=== PATIENT | female | born 1990 | race Caucasian/White ===

== ENCOUNTER 2017-04-05 15:43 | Emergency (ER) | payer OTHER ==
[2017-04-05 16:04] VITALS: BP 124/78
--- NOTE | 2017-04-05 16:16 | ED ---
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,, - History of Current Complaint Chief Complaint: EDExtremityUpper Stated Complaint: RT ARM PAIN/SWELLING Time Seen by Provider: 04/05/17 16:07 Hx Obtained From: Patient Hx Last Menstrual Period: June 2016 (Nexplanon) Onset/Duration: Atraumatic Timing: Constant Severity Initially: Moderate Severity Currently: Moderate Pain Location: Wrist - right Character: Aching Aggravating Factor(s): Movement Alleviating Factor(s): Nothing Associated Signs & Symptoms: Positive: Negative Related History: Dominant Hand Right - Allergies/Home Medications Allergies/Adverse Reactions: Allergies Allergy/AdvReac Type Severity Reaction Status Date / Time No Known Allergies Allergy Verified 03/17/15 13:45 PMH/Surg Hx/FS Hx/Imm Hx Previously Healthy: Yes Psychiatric History: Reports: Hx Anxiety, Hx Depression Infectious Disease History: No Infectious Disease History: Denies: Traveled Outside the [place] in Last 30 Days - Family History Known Family History: Positive: None - Social History Occupation: Employed Full-time Lives: With Family Alcohol Use: None Substance Use Type: Reports: Heroin Substance Use Comment - Amount & Last Used: 1.5 yrs ago last use Hx Tobacco Use: Yes Smoking Status (MU): Current Every Day Smoker Type: Cigarettes Amount Used/How Often: 1ppd Have You Smoked in the Last Year: Yes Cessation Counseling: Counseled 3+Min - 10 Min Review of Systems Constitutional: Negative Eyes: Negative ENT: Negative Cardiovascular: Negative Respiratory: Negative Gastrointestinal: Negative Genitourinary: Negative Positive: Arthralgia - right wrist Skin: Negative Neurological: Negative Psychological: Normal All Other Systems Reviewed And Are Negative: Yes Physical Exam Triage Information Reviewed: Yes Vital Signs On Initial Exam: Initial Vitals Temp Pulse Resp BP Pulse Ox 97.5 F 73 16 124/78 99 04/05/17 16:00 04/05/17 16:00 04/05/17 16:00 04/05/17 16:00 04/05/17 16:00 Vital Signs Reviewed: Yes Appearance: Positive: Well-Appearing, No Pain Distress, Well-Nourished Skin: Positive: Warm, Skin Color Reflects Adequate Perfusion Head/Face: Positive: Normal Head/Face Inspection Eyes: Positive: Normal, Conjunctiva Clear ENT: Positive: Normal ENT inspection, Hearing grossly normal. Negative: Nasal congestion, Nasal drainage, Trismus, Muffled/hoarse voice Neck: Positive: Supple, Nontender Respiratory/Lung Sounds: Positive: Breath Sounds Present Cardiovascular: Positive: Normal, RRR, Pulses are Symmetrical in both Upper and Lower Extremities Musculoskeletal: Positive: Strength/ROM Intact - right wrist, Pain @ - right wrist Neurological: Positive: Normal, Sensory/Motor Intact, Alert, Oriented to Person Place, Time Psychiatric: Positive: Normal AVPU Assessment: Alert - [place] Coma Scale Best Eye Response: 4 - Spontaneous Best Motor Response: 6 - Obeys Commands Best Verbal Response: 5 - Oriented Diagnostics - Vital Signs Vital Signs Temp Pulse Resp BP Pulse Ox 04/05/17 16:00 97.5 F 73 16 124/78 99 - Laboratory Lab Statement: Any lab studies that have been ordered have been reviewed, and results considered in the medical decision making process. - Radiology No standard instances Xray Interpretation: No Acute Changes Radiology Interpretation Completed By: ED Physician Course/Dx - Course Assessment/Plan: lonnie, cockup splint, ibuprofen rice, follow with ortho prn - Diagnoses Provider Diagnoses: Nicotine dependence, Repetitive motion injury Discharge - Discharge Plan Condition: Stable Disposition: HOME Patient Education Materials: RICE Therapy (ED), Ibuprofen (By mouth), Wrist Injury (ED) Forms: *Work Release Referrals: Lana Godinez MD [Primary Care Provider] - If Needed
--- NOTE | 2017-04-05 17:00 | RAD ---
INDICATION: RIGHT wrist pain with proximal radiation; over use injury. COMPARISON: None. TECHNIQUE: AP, lateral, and oblique views RIGHT wrist. REPORT: Normal articular alignment and preserved joint spaces. Negative for fracture or focal osseous lesion. Unremarkable soft tissue contours. IMPRESSION: Negative exam.
== END 2017-04-05 17:10 | disposition home or self-care (01) ==
LOC: ED 15:43
DX: S69.91XA Unspecified injury of right wrist, hand and finger(s), initial encounter (principal); X50.3XXA Overexertion from repetitive movements, initial encounter; Y93.E9 Activity, other interior property and clothing maintenance; Y92.59 Other trade areas as the place of occurrence of the external cause; Y99.0 Civilian activity done for income or pay; F41.9 Anxiety disorder, unspecified; F32.9 Major depressive disorder, single episode, unspecified; Z71.6 Tobacco abuse counseling; F17.210 Nicotine dependence, cigarettes, uncomplicated
CPT/HCPCS: 99282

== ENCOUNTER 2017-07-30 15:42 | Emergency (ER) | payer OTHER ==
--- OUTSIDE RECORDS SUMMARY | 2017-07-30 15:50 | XMS REPORT ---
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 Marleny Mo PayID: [id number] [address] [place] [address] Commercial Expires: 2017 Policy Number: [id number] [facility] Marleny Mo PayID: [id number] [address] [address] [place] [address] Medigap Part B Policy Number: [id number] Medicaid [place] Marleny Mo PayID: [id number] [address] [place] [address] Problems Date Description Provider Status Onset: 05/12/2016 Tobacco user Lupe Wilson CNM Active Onset: 05/12/2016 Primigravida Lupe Wilson CNM Resolved Resolved: 07/18/2016 Family History Date Family Member(s) Problem(s) Comments Father A&W Mother due to Accident () Children 1 First Son A&W Siblings 5 First Brother Depression Second Brother A&W First Sister Mental Retardation Second Sister A&W Third Sister A&W Paternal Grandfather due to Old Age () Paternal Grandmother A&W Maternal Grandfather Unknown Maternal Grandmother Diabetes Paternal Aunts Diabetes Social History Type Date Description Comments Education Highest level completed, 12th grade Marital Status Engaged Lives With Fiance Lives With fiance's uncle Lives With Son Pets 1 dog Occupation Unemployed Cigarette Use Current Cigarette Smoker 5-10 Cigarettes Daily ETOH Use Denies alcohol use Recreational Drug Use Denies Drug Use Smoking Patient is a current smoker, smokes every day Daily Caffeine Consumes on average 1 soda per day Exercise Type/Frequency Does not exercise Seat Belt/Car Seat Always uses seat belt Currently Active Patient is currently sexually active Contraceptive Methods Nexplanon STD's HPV, High Risk Allergies, Adverse Reactions, Alerts Date Description Reaction Status Severity Comments 04/18/2016 NKDA active Medications Medication Date Status Form Strength Qnty SIG Indications Ordering Provider No Active 05/23/ Active Unknown Medications 2016 Premarin 11/01/ Hx Cream 0.625mg/GM 12gm insert 0.5 Dev Jones 2017 - gram Pop, 04/25/ vaginally Rudy 2017 two nights per week Nexplanon 07/18/ Hx Implant 68mg Stephanie 2017 - Thang, 05/23/ 2017 No Active 06/30/ Hx Unknown Medications 2017 - 2016 Flagyl 04/19/ Hx Tablets 500mg 14tabs 1 by mouth Janette 2016 - twice a day Jump, 04/26/ x7 ANP-C 2016 / Hx Tablets 28-0.8mg 1 by mouth Unknown Vitamins 0000 - every day. 06/30/ please 2017 substitute any vitamin with 100-300 mcg dha covered by insurance Medications Administered in Office Medication Date Status Form Strength Qnty SIG Indications Ordering Provider PT SCRN Tbco Administered Injection Dev Jones Id as Non User 018 Rudy Lord Immunizations CPT Code Status Date Vaccine Lot # [id number] Given 04/19/2016 Tetnus, Diptheria Toxoids And Acellular Pertussis, [id number] PT > 7Yrs Old Vital Signs Date Vital Result Comment 07/23/2017 BP Systolic 132 mmHg BP Diastolic 80 mmHg Height 65.5 inches 5'5.50" Weight 189.00 lb BMI (Body Mass Index) 31.0 kg/m2 Last Menstrual Period [id number] 1 Parity 1 05/23/2017 BP Systolic 128 mmHg BP Diastolic 84 mmHg Height 65.5 inches 5'5.50" Weight 192.00 lb BMI (Body Mass Index) 31.5 kg/m2 1 Parity 1 11/01/2016 BP Systolic 122 mmHg BP Diastolic 70 mmHg Height 65.5 inches 5'5.50" Weight 180.00 lb BMI (Body Mass Index) 29.5 kg/m2 Last Menstrual Period [id number] 1 Parity 1 08/15/2016 BP Systolic 116 mmHg BP Diastolic 72 mmHg Height 65.5 inches 5'5.50" Weight 174.00 lb BMI (Body Mass Index) 28.5 kg/m2 Last Menstrual Period [id number] 1 Parity 1 07/18/2016 BP Systolic 122 mmHg BP Diastolic 80 mmHg Height 65.5 inches 5'5.50" Weight 174.00 lb BMI (Body Mass Index) 28.5 kg/m2 Last Menstrual Period [id number] 1 Parity 1 06/30/2016 BP Systolic 120 mmHg BP Diastolic 80 mmHg Height 65.5 inches 5'5.50" Weight 177.00 lb BMI (Body Mass Index) 29.0 kg/m2 Last Menstrual Period [id number] 1 Parity 1 04/19/2016 BP Systolic 122 mmHg BP Diastolic 70 mmHg Height 65.5 inches 5'5.50" Weight 186.00 lb BMI (Body Mass Index) 30.5 kg/m2 Last Menstrual Period [id number] 1 Parity 0 Results Test Date Test Result H/L Range Note Laboratory test 07/27/2017 HCG <pending> finding Laboratory test 07/23/2017 HCG 263.57 mIU/mL 1 finding CBC Auto Diff 07/23/2017 White Blood Count 10.5 10^3/uL 3.5-10.8 Red Blood Count 5.37 10^6/uL 4.0-5.4 Hemoglobin 14.9 g/dL 12.0-16.0 Hematocrit 44 % 35-47 Mean Corpuscular Volume 83 fL 80-97 Mean Corpuscular Hemoglobin 28 pg 27-31 Mean Corpuscular HGB Conc 34 g/dL 31-36 Red Cell Distribution Width 15 % 10.5-15 Platelet Count 254 10^3/uL 150-450 Mean Platelet Volume 10 um3 7.4-10.4 Abs Neutrophils 8.4 10^3/uL High 1.5-7.7 Abs Lymphocytes 1.3 10^3/uL 1.0-4.8 Abs Monocytes 0.6 10^3/uL 0-0.8 Abs Eosinophils 0.1 10^3/uL 0-0.6 Abs Basophils 0.1 10^3/uL 0-0.2 Abs Nucleated RBC 0 10^3/uL Granulocyte % 79.9 % 38-83 Lymphocyte % 12.7 % Low 25-47 Monocyte % 6.2 % 1-9 Eosinophil % 0.5 % 0-6 Basophil % 0.7 % 0-2 Nucleated Red Blood Cells % 0 Comp Metabolic Panel 07/23/2017 Sodium 139 mmol/L 133-145 Potassium 4.0 mmol/L 3.5-5.0 Chloride 107 mmol/L 101-111 Co2 Carbon Dioxide 25 mmol/L 22-32 Anion Gap 7 mmol/L 2-11 Glucose 74 mg/dL 70-100 Blood Urea Nitrogen 5 mg/dL Low 6-24 Creatinine 0.81 mg/dL 0.51-0.95 BUN/Creatinine Ratio 6.2 Low 8-20 Calcium 9.6 mg/dL 8.6-10.3 Total Protein 6.8 g/dL 6.4-8.9 Albumin 4.3 g/dL 3.2-5.2 Globulin 2.5 g/dL 2-4 Albumin/Globulin Ratio 1.7 1-3 Total Bilirubin 0.30 mg/dL 0.2-1.0 Alkaline Phosphatase 63 U/L 34-104 Alt 32 U/L 7-52 Ast 22 U/L 13-39 Egfr Non- 84.8 >60 Egfr 109.1 >60 2 Laboratory test 11/01/2016 Surgical Pathology SEE RESULT BELOW 3 finding Laboratory test 08/15/2016 Surgical Pathology SEE RESULT BELOW 4 finding GC/Chlamydia Dna 04/26/2016 Chlamydia trachomatis Negative Negative Probe Rna Neisseria gonorrhoeae (GC) Rna Negative Negative Urine Drug Comp 20 Test 04/26/2016 Urine Amphetamine Negative ng/mL 5 Urine Barbiturates Negative ng/mL 6 Urine Benzodiazepines Negative ng/mL 7 Urine Cocaine Negative ng/mL 8 Urine Phencyclidine Negative ng/mL Cutoff: 25 Urine Tetrahydrocannabinol Negative ng/mL Cutoff: 50 9 Creatinine 270.7 mg/dL Specific [place] 1.015 pH 7.0 Oxidants Negative 10 Adulterants Comment Normal Codeine, Ur Not Detected ng/mL Cutoff: 25 11 Jozzkoc-8-xwib-glucuronide, Ur Not Detected ng/mL 12 Morphine, Ur Not Detected ng/mL Cutoff: 25 13 Mqfzjzbr-7-fgui-glucuronide, U Not Detected ng/mL 14 6-monoacetylmorphine, Ur Not Detected ng/mL Cutoff: 25 15 Hydrocodone, Ur Not Detected ng/mL Cutoff: 25 16 Norhydrocodone, Ur Not Detected ng/mL Cutoff: 25 17 Dihydrocodeine, Ur Not Detected ng/mL Cutoff: 25 18 Hydromorphone, Ur Not Detected ng/mL Cutoff: 25 19 Xzqgpkcppocrm4othklpyqkmeexnu Not Detected ng/mL 20 Oxycodone, Ur Not Detected ng/mL Cutoff: 25 21 Noroxycodone, Ur Not Detected ng/mL Cutoff: 25 22 Oxymorphone, Ur Not Detected ng/mL Cutoff: 25 23 Eskpczthzlw-4-qxjw-glucuronide Not Detected ng/mL 24 Noroxymorphone, Ur Not Detected ng/mL Cutoff: 25 25 Fentanyl, Ur Not Detected ng/mL Cutoff: 2 26 Norfentanyl, Ur Not Detected ng/mL Cutoff: 2 27 Meperidine, Ur Not Detected ng/mL Cutoff: 25 28 Normeperidine, Ur Not Detected ng/mL Cutoff: 25 29 Naloxone, Ur Not Detected ng/mL Cutoff: 25 30 Jtmpglrh-1-fzzq-glucuronide, U Not Detected ng/mL 31 Methadone, Ur Not Detected ng/mL Cutoff: 25 32 Eddp, Ur Not Detected ng/mL Cutoff: 25 33 Propoxyphene, Ur Not Detected ng/mL Cutoff: 25 34 Norpropoxyphene, Ur Not Detected ng/mL Cutoff: 25 35 Tramadol, Ur Not Detected ng/mL Cutoff: 25 36 O-desmethyltramadol, Ur Not Detected ng/mL Cutoff: 25 37 Tapentadol, Ur Not Detected ng/mL Cutoff: 25 38 N-desmethyltapentadol, Ur Not Detected ng/mL Cutoff: 50 39 Lxokekxkqm-zavr-yorfbanbenh, U Not Detected ng/mL 40 Buprenorphine, Ur Not Detected ng/mL Cutoff: 5 41 Norbuprenorphine, Ur Not Detected ng/mL Cutoff: 5 42 Norbuprenorphine glucuronide Not Detected ng/mL Cutoff: 20 43 Opioid Interpretation See Comment 44 Laboratory test 04/19/2016 Rubella Screen Nonimmune IU/mL Immune 45 finding Laboratory test 04/19/2016 Group B Strep SEE RESULT BELOW 46, 47 finding Culture Screen Laboratory test 04/19/2016 Cytology SEE RESULT BELOW ASCUS 48 finding GC/Chlamydia Dna 04/19/2016 Chlamydia Negative Negative Probe trachomatis Rna Neisseria gonorrhoeae (GC) Rna Negative Negative Laboratory test finding 04/19/2016 HPV Rna Ww/Reflex Genotype POSITIVE Negative 49 HPV 16, 18/45 Genotype 04/19/2016 HPV 16 Genotype Negative Negative HPV 18/45 Genotype Negative Negative Urine Culture And Sensitivities 04/19/2016 Urine Culture SEE RESULT BELOW 50 1 <5.0 Negative 5.0 - 25.0 Indeterminate (Repeat testing recommended after 72 hours) >25.0 Positive Perimenopausal women can display HCG levels of up to 20 mIU/mL 2 Because ethnic data is not always readily available, this report includes an eGFR for both -Americans and non- Americans. The National Kidney Disease Education Program (NKDEP) does not endorse the use of the MDRD equation for patients that are not between the ages of 18 and 70, are , have extremes of body size, muscle mass, or nutritional status, or are non- or non-. According to the National Kidney Foundation, irrespective of diagnosis, the stage of the disease is based on the level of kidney function: Stage Description GFR(mL/min/1.73 m(2)) 1 Kidney damage with normal or decreased GFR 90 2 Kidney damage with mild decrease in GFR 60-89 3 Moderate decrease in GFR 30-59 4 Severe decrease in GFR 15-29 5 Kidney failure <15 (or dialysis) 3 SEE RESULT BELOW Name: MARLENY MO : [address]: Dev Lord MD Acct: [id number] Unit: [id number] AGE: 26 Location: [facility] Re11/01/16 SEX: F Status: REG REF SPEC: [id number] DANIELLE: 11/01/16-1516 [facility] [address]: Dev Lord MD REQ: [id number] RECD: 11/02/16 STATUS: SOUT _ ORDERED: LEVEL 4, LEVEL 5 COMMENTS: [id number] FINAL DIAGNOSIS 1. Uterus, cervix, loop electrocautery excision procedure: -- Cervical tissue with HPV-related viral cytopathic effect and moderate squamous dysplasia (PELON 2/HSIL). -- All margins are clear for significant dysplasia. 2. Uterus, endocervix, curettage: -- Benign endocervical mucosa with no significant pathologic abnormalities. PRE-OPERATIVE DIAGNOSIS High grade squamous intraepithelial lesion, positive human papilloma virus GROSS DESCRIPTION 1. The specimen is received in formalin labeled, Cervical Biopsy LEEP, and consists of three cortes-pink irregular focally cauterized soft tissue fragments ranging from 0.7 x 0.5 x 0.2 cm to 2.0 x 1.1 x 0.4 cm. The specimen is consistent with a previously disrupted cervical LEEP biopsy. The ectocervix is smooth to wrinkled cortes-pink. The endocervix cannot be appreciated. The specimen is inked, sectioned and entirely submitted in cassettes A through D to include largest fragment in cassettes A and B. 2. The specimen is received in formalin labeled, ECC, and consists of a 1.1 x 0.9 x 0.5 cm aggregate of blood-tinged mucus which is submitted entirely in one cassette. Signed (signature on file) Nohemy Crowell MD 06/10 1604 END OF REPORT * ML=Testing performed at Main Lab DEPARTMENT OF PATHOLOGY, [address] [place] [address] Moises Salazar M.D. Director [facility] # [id number] 4 SEE RESULT BELOW Name: MARLENY MO : [address]: Dev Lord MD Acct: [id number] Unit: [id number] AGE: 26 Location: [facility] Re08/15/16 SEX: F Status: REG REF SPEC: [id number] DANIELLE: 08/15/16-9[address] [facility] DR: Dev Lord MD REQ: [id number] RECD: 08/16/16-1145 STATUS: SOUT _ ORDERED: P16 STAIN, LEVEL IV COMMENTS: [id number] FINAL DIAGNOSIS Uterus, cervix, biopsy: -- Detached fragments of cervical mucosa with HPV-related viral cytopathic effect and moderate squamous dysplasia (PELON 2/HSIL); see comment. COMMENT: A p16 immunostain, with appropriately reacting controls, is strongly and diffusely positive in fragmented dysplastic squamous epithelium, supporting the diagnosis. Dr. Salazar reviewed this case in intradepartmental consultation and agrees with the diagnosis. PRE-OPERATIVE DIAGNOSIS Atypical squamous cells of undetermined significance, positive human papilloma virus GROSS DESCRIPTION The specimen is received in formalin labeled, Cervical Biopsy, and consists of a brush-like device with an adherent 0.3 x 0.2 x 0.1 cm aggregate of cortes-pink mucus and scant possible soft tissue fragments. The specimen is filtered and submitted entirely in one cassette. Signed (signature on file) Nohemy Crowell MD 0950 END OF REPORT * ML=Testing performed at Main Lab DEPARTMENT OF PATHOLOGY, [address] [place] [address] Moises Salazar M.D. Director [facility] # [id number] 5 REFERENCE VALUE Cutoff: 500 6 REFERENCE VALUE Cutoff: 200 7 REFERENCE VALUE Cutoff: 100 8 REFERENCE VALUE Cutoff: 150 9 ADDITIONAL INFORMATION This report is intended for use in clinical monitoring or management of patients. It is not intended for use in employment-related testing. 10 REFERENCE VALUE Cutoff: 200 mg/L 11 Tylenol 3 12 Metabolite of codeine REFERENCE VALUE Cutoff: 100 13 Glenis Porras, Contin; Also a minor metabolite (10%) of codeine and can be seen in low concentrations (<2,000 ng/mL) with poppy seed ingestion. 14 Metabolite of morphine REFERENCE VALUE Cutoff: 100 15 Metabolite of heroin 16 Lortab, Brohman, Vicodin; Also a very minor metabolite of codeine and impurity (<1%) of oxycodone. 17 Metabolite of hydrocodone 18 Metabolite of hydrocodone 19 Dilaudid, Exalgo; Also a metabolite of hydrocodone and a minor (<5%) metabolite of morphine. 20 Metabolite of hydromorphone REFERENCE VALUE Cutoff: 100 21 Endocet, Percocet, Oxycontin 22 Metabolite of oxycodone 23 Numorphan, Opana; Also a metabolite of oxycodone. 24 Metabolite of oxymorphone REFERENCE VALUE Cutoff: 100 25 Metabolite of oxymorphone 26 Actiq, Duragesic, Fentora 27 Metabolite of fentanyl 28 Demerol 29 Metabolite of meperidine 30 Narcan 31 Metabolite of naloxone REFERENCE VALUE Cutoff: 100 32 Dolophine 33 Metabolite of methadone 34 Darvon, Darvocet 35 Metabolite of propoxyphene 36 Tradol, Ultram, Ultracet 37 Metabolite of tramadol 38 Nucynta 39 Metabolite of tapentadol 40 Metabolite of tapentadol REFERENCE VALUE Cutoff: 100 41 Buprenex, Suboxone 42 Metabolite of buprenorphine 43 Metabolite of buprenorphine 44 No opioids were detected. The absence of expected drug(s) and/or drug metabolite(s) may indicate non-compliance, altered pharmacokinetics, inappropriate timing of specimen collection relative to drug administration, diluted/adulterated urine, or limitations of testing. ADDITIONAL INFORMATION This test was developed and its performance characteristics determined by [facility] in a manner consistent with CLIA requirements. This test has not been cleared or approved by the U.S. Food and Drug Administration. PDF Report available at: [email or web address] Test Performed by: [place] [address] Claim Rep: Dwayne Hughes II, M.D., Ph.D. 45 [id number] 46 [id number] 47 SEE RESULT BELOW Name: MARLENY MO : [address]: Janette Rosales Acct: [id number] Unit: [id number] AGE: 25 Location: [facility] Re04/19/16 SEX: F Status: REG REF SPEC: [id number] DANIELLE: 04/19/[address]: Janette Rosales REQ: [id number] RECD: 04/19/16 STATUS: COMP _ SOURCE: CER/VAG/RE SPDESC: ORDERED: Grp B Strp Scrn COMMENTS: [id number] QUERIES: Is Patient Penicillin Allergic? N Is patient penicillin allergic and/or sensitivities needed? N Provider Requisition # C77#[id number] Procedure Result Reported Site Group B Strep Culture Screen Final 04/21/16- 1054 ML Group B Strep Screen Negative * ML - MAIN LAB ([facility]) . END OF REPORT * ML=Testing performed at Main Lab DEPARTMENT OF PATHOLOGY, [address] [place] [address] Moises Salazar M.D. Director [facility] # [id number] 48 SEE RESULT BELOW Name: MARLENY MO : [address]: Janette Rosales Acct: [id number] Unit: [id number] AGE: 25 Location: [facility] Re04/19/16 SEX: F Status: REG REF SPEC: [id number] DANIELLE: 04/19/[address] [facility] [address]: Janette Rosales REQ: [id number] RECD: 04/19/16 STATUS: SOUT _ ORDERED: IMAGE ANALYSIS, HPV/Thin Prep, HPV 16/18 GENE COMMENTS: [id number] FINAL DIAGNOSIS EPITHELIAL CELL ABNORMALITIES Atypical squamous cells of undetermined significance A. Ectocervical/Endocervical Specimen Adequacy: Satisfactory of evaluation Transformation zone component identified Patient Information: HPV: High risk HPV RNA testing regardless of pap results. HPV 16/18 Genotype Reflex Actual Specimen Date: 04/19/16 Last Menstrual Date: 07/28/15 ?: Y Date Time Test Result Flag (u) Normal Range 04/19/16 1352 HPV RNA RFLX GE POSITIVE H Negative The high-risk HPV types detected by the assay include: 16, 18, 31, 33, 35, 39, 45, 51, 52, 56, 58, 59, 66, and 68. Signed (signature on file) Moises Salazar MD 1615 This Pap test was evaluated with the assistance of the [employer] Test Imaging System. Due to cytologic findings at the steel buffer microscope, comprehensive manual rescreening by a Water Filter Cleaner may be required. The Pap Smear is a screening test designed to aid in the detection of premalignant and malignant conditions of the uterine cervix. It is not a diagnostic procedure and should not be used as the sole means of detecting cervical cancer. Both false- positive and false- negative reports do occur. Depending on your risk status, a Pap smear should be obtained and evaluated every 1-3 years. END OF REPORT * ML=Testing performed at Main Lab DEPARTMENT OF PATHOLOGY, [address] [place] [address] Moises Salazar M.D. Director [facility] # [id number] 49 The high-risk HPV types detected by the assay include: 16, 18, 31, 33, 35, 39, 45, 51, 52, 56, 58, 59, 66, and 68. 50 SEE RESULT BELOW Name: MARLENY MO : [address]: Janette Rosales Acct: [id number] Unit: [id number] AGE: 25 Location: [facility] Re04/19/16 SEX: F Status: REG REF SPEC: [id number] DANIELLE: 04/19/16-[address]: Janette Rosales REQ: [id number] RECD: 04/19/169314 STATUS: COMP _ SOURCE: URINE SPDESC: ORDERED: Urine Culture COMMENTS: [id number] Procedure Result Reported Site Urine Culture Final 04/20/16- 1557 ML No growth of clinically significant organisms * ML - MAIN LAB ([facility]) . END OF REPORT * ML=Testing performed at Main Lab DEPARTMENT OF PATHOLOGY, [address] [place] [address] Moises Salazar M.D. Director [facility] # [id number] Procedures Date CPT Code Description Status 05/23/2017 18322 Remove Contraceptive Capsule Completed 11/01/2016 75873 Colposcopy W/Loop Electrode Biopsy Of The Cervix Completed 08/15/2016 19346 Colposcopy W/Biopsy Cervix/Endocervical Curettage Completed 07/18/2016 81803 Insertion, Non-Biodegradable Drug Delivery Implant Completed 05/17/2016 90553 Vaginal Delivery Only Completed 05/12/2016 15020 Antepartum Care 4-6 Visits Completed Encounters Type Date Location Provider CPT E/M Dx Office Visit 07/23/2017 2:00p [facility] Dev Lord M.D. 51573 O36.80x0 Plan of Care Future Appointment(s):07/30/2017 2:30 pm - Ultrasounds at [facility]2017 11:00 am - Sandee Zavala CNM at [facility]
--- OUTSIDE RECORDS SUMMARY | 2017-07-30 15:51 | XMS REPORT ---
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 Payers Type Date Identification Numbers Payment Provider Subscriber Commercial Policy Number: [id number] [facility] Marleny Mo PayID: [id number] [address] [place] [address] Commercial Expires: 2017 Policy Number: [id number] [facility] Marleny Mo PayID: [id number] [address] [address] [place] [address] Medigap Part B Policy Number: [id number] Medicaid [place] Marleny Mo PayID: [id number] [address] [place] [address] Problems Date Description Provider Status Onset: 05/12/2016 [...] insert 0.5 Dev Jones 2017 - gram Gelber, 04/25/ vaginally M.DLexi 2017 two nights per week Nexplanon 07/18/ Hx Implant 68mg Stephanie 2017 - Thang, 2016 No Active 06/30/ Hx Unknown Medications 2017 - 2016 Flagyl 04/19/ Hx Tablets 500mg 14tabs 1 by mouth Janette 2016 - twice a day Jump, 04/26/ x7 ANP-C 2016 / Hx Tablets 28-0.8mg 1 by mouth Unknown Vitamins 0000 - every day. 06/30/ please 2017 substitute any vitamin with 100-300 mcg dha covered by insurance Immunizations CPT Code Status Date Vaccine Lot # [id number] Given 04/19/2016 Tetnus, Diptheria Toxoids And Acellular Pertussis, [id number] PT > 7Yrs Old Vital Signs Date Vital Result Comment 07/23/2017 BP Systolic 132 mmHg BP Diastolic 80 mmHg Height 65.5 inches 5'5.50" Weight 189.00 lb BMI (Body Mass Index) 31.0 kg/m2 Last Menstrual Period [id number] 1 Parity 1 05/23/2017 BP Systolic 128 mmHg BP Diastolic 84 mmHg Height 65.5 inches 5'5.50" Weight 192.00 lb BMI (Body Mass Index) 31.5 kg/m2 1 Parity 1 11/01/2016 BP Systolic 122 mmHg BP Diastolic 70 mmHg Height 65.5 inches 5'5.50" Weight 180.00 lb BMI (Body Mass Index) 29.5 kg/m2 Last Menstrual Period [id number] 1 Parity 1 08/15/2016 BP Systolic 116 mmHg BP Diastolic 72 mmHg Height 65.5 inches 5'5.50" Weight 174.00 lb BMI (Body Mass Index) 28.5 kg/m2 Last Menstrual Period [id number] 1 Parity 1 07/18/2016 BP Systolic 122 mmHg BP Diastolic 80 mmHg Height 65.5 inches 5'5.50" Weight 174.00 lb BMI (Body Mass Index) 28.5 kg/m2 Last Menstrual Period [id number] 1 Parity 1 06/30/2016 BP Systolic 120 mmHg BP Diastolic 80 mmHg Height 65.5 inches 5'5.50" Weight 177.00 lb BMI (Body Mass Index) 29.0 kg/m2 Last Menstrual Period [id number] 1 Parity 1 04/19/2016 BP Systolic 122 mmHg BP Diastolic 70 mmHg Height 65.5 inches 5'5.50" Weight 186.00 lb BMI (Body Mass Index) 30.5 kg/m2 Last Menstrual Period [id number] 1 Parity 0 Results Test Date Test Result H/L Range Note Laboratory test 07/23/2017 HCG <pending> finding Laboratory test 11/01/2016 Surgical Pathology SEE RESULT BELOW 1 finding Laboratory test 08/15/2016 Surgical Pathology SEE RESULT BELOW 2 finding GC/Chlamydia Dna 04/26/2016 Chlamydia Negative Negative Probe trachomatis Rna Neisseria gonorrhoeae (GC) Rna Negative Negative Urine Drug Comp 20 Test 04/26/2016 Urine Amphetamine Negative ng/mL 3 Urine Barbiturates Negative ng/mL 4 Urine Benzodiazepines Negative ng/mL 5 Urine Cocaine Negative ng/mL 6 Urine Phencyclidine Negative ng/mL Cutoff: 25 Urine Tetrahydrocannabinol Negative ng/mL Cutoff: 50 7 Creatinine 270.7 mg/dL Specific [place] 1.015 pH 7.0 Oxidants Negative 8 Adulterants Comment Normal Codeine, Ur Not Detected ng/mL Cutoff: 25 9 Hhmnvqq-4-vlun-glucuronide, Ur Not Detected ng/mL 10 Morphine, Ur Not Detected ng/mL Cutoff: 25 11 Bpxrodjk-0-pdxq-glucuronide, U Not Detected ng/mL 12 6-monoacetylmorphine, Ur Not Detected ng/mL Cutoff: 25 13 Hydrocodone, Ur Not Detected ng/mL Cutoff: 25 14 Norhydrocodone, Ur Not Detected ng/mL Cutoff: 25 15 Dihydrocodeine, Ur Not Detected ng/mL Cutoff: 25 16 Hydromorphone, Ur Not Detected ng/mL Cutoff: 25 17 Lhtiirjktyboi8gsbumrdlbhodcsh Not Detected ng/mL 18 Oxycodone, Ur Not Detected ng/mL Cutoff: 25 19 Noroxycodone, Ur Not Detected ng/mL Cutoff: 25 20 Oxymorphone, Ur Not Detected ng/mL Cutoff: 25 21 Tqikxhtrzqm-0-uigl-glucuronide Not Detected ng/mL 22 Noroxymorphone, Ur Not Detected ng/mL Cutoff: 25 23 Fentanyl, Ur Not Detected ng/mL Cutoff: 2 24 Norfentanyl, Ur Not Detected ng/mL Cutoff: 2 25 Meperidine, Ur Not Detected ng/mL Cutoff: 25 26 Normeperidine, Ur Not Detected ng/mL Cutoff: 25 27 Naloxone, Ur Not Detected ng/mL Cutoff: 25 28 Gcoygqvb-2-cmep-glucuronide, U Not Detected ng/mL 29 Methadone, Ur Not Detected ng/mL Cutoff: 25 30 Eddp, Ur Not Detected ng/mL Cutoff: 25 31 Propoxyphene, Ur Not Detected ng/mL Cutoff: 25 32 Norpropoxyphene, Ur Not Detected ng/mL Cutoff: 25 33 Tramadol, Ur Not Detected ng/mL Cutoff: 25 34 O-desmethyltramadol, Ur Not Detected ng/mL Cutoff: 25 35 Tapentadol, Ur Not Detected ng/mL Cutoff: 25 36 N-desmethyltapentadol, Ur Not Detected ng/mL Cutoff: 50 37 Itikdsthoi-uwdw-rivpbzkyndt, U Not Detected ng/mL 38 Buprenorphine, Ur Not Detected ng/mL Cutoff: 5 39 Norbuprenorphine, Ur Not Detected ng/mL Cutoff: 5 40 Norbuprenorphine glucuronide Not Detected ng/mL Cutoff: 20 41 Opioid Interpretation See Comment 42 Laboratory test 04/19/2016 Rubella Screen Nonimmune IU/mL Immune 43 finding Laboratory test 04/19/2016 Group B Strep SEE RESULT BELOW 44, 45 finding Culture Screen Laboratory test 04/19/2016 Cytology SEE RESULT BELOW ASCUS 46 finding GC/Chlamydia Dna 04/19/2016 Chlamydia Negative Negative Probe trachomatis Rna Neisseria gonorrhoeae (GC) Rna Negative Negative Laboratory test finding 04/19/2016 HPV Rna Ww/Reflex Genotype POSITIVE Negative 47 HPV 16, 18/45 Genotype 04/19/2016 HPV 16 Genotype Negative Negative HPV 18/45 Genotype Negative Negative Urine Culture And Sensitivities 04/19/2016 Urine Culture SEE RESULT BELOW 48 1 SEE RESULT BELOW Name: MARLENY MO : [address]: Dev Lord MD Acct: [id number] Unit: [id number] AGE: 26 Location: [facility] Re11/01/16 SEX: F Status: REG REF SPEC: [id number] DANIELLE: 11/01/16-[address] [facility] [address]: Dev Lord MD REQ: [id number] RECD: 11/02/165 STATUS: SOUT _ ORDERED: LEVEL 4, LEVEL 5 COMMENTS: [id number] FINAL DIAGNOSIS 1. Uterus, cervix, loop electrocautery [...] performed at Main Lab DEPARTMENT OF PATHOLOGY, [address] [place] [address] Moises Salazar M.D. Director [facility] # [id number] 2 SEE RESULT BELOW Name: MARLENY MO Janna : [address]: Dev Lord MD Acct: [id number] Unit: [id number] AGE: 26 Location: [facility] Re08/15/16 SEX: F Status: REG REF SPEC: [id number] DANIELLE: 08/15/16-[address] [facility] [address]: Dev Lord MD REQ: [id number] RECD: 08/16/161145 STATUS: SOUT _ ORDERED: P16 STAIN, LEVEL IV COMMENTS: [id number] FINAL DIAGNOSIS Uterus, cervix, biopsy: -- Detached [...] performed at Main Lab DEPARTMENT OF PATHOLOGY, [address] [place] [address] Moises Salazar M.D. Director [facility] # [id number] 3 REFERENCE VALUE Cutoff: 500 4 REFERENCE VALUE Cutoff: 200 5 REFERENCE VALUE Cutoff: 100 6 REFERENCE VALUE Cutoff: 150 7 ADDITIONAL INFORMATION This report is intended for use in clinical monitoring or management of patients. It is not intended for use in employment-related testing. 8 REFERENCE VALUE Cutoff: 200 mg/L 9 Tylenol 3 10 Metabolite of codeine REFERENCE VALUE Cutoff: 100 11 Glenis Porras MS Contin; Also a minor metabolite (10%) of codeine and can be seen in low concentrations (<2,000 ng/mL) with poppy seed ingestion. 12 Metabolite of morphine REFERENCE VALUE Cutoff: 100 13 Metabolite of heroin 14 Lortab, [place], Vicodin; Also a very minor metabolite of codeine and impurity (<1%) of oxycodone. 15 Metabolite of hydrocodone 16 Metabolite of hydrocodone 17 Dilaudid, Exalgo; Also a metabolite of hydrocodone and a minor (<5%) metabolite of morphine. 18 Metabolite of hydromorphone REFERENCE VALUE Cutoff: 100 19 Endocet, Percocet, Oxycontin 20 Metabolite of oxycodone 21 Numorphan, Opana; Also a metabolite of oxycodone. 22 Metabolite of oxymorphone REFERENCE VALUE Cutoff: 100 23 Metabolite of oxymorphone 24 Actiq, Duragesic, [place] 25 Metabolite of fentanyl 26 Demerol 27 Metabolite of meperidine 28 Narcan 29 Metabolite of naloxone REFERENCE VALUE Cutoff: 100 30 Dolophine 31 Metabolite of methadone 32 Darvon, Darvocet 33 Metabolite of propoxyphene 34 Tradol, Ultram, Ultracet 35 Metabolite of tramadol 36 Nucynta 37 Metabolite of tapentadol 38 Metabolite of tapentadol REFERENCE VALUE Cutoff: 100 39 Buprenex, Suboxone 40 Metabolite of buprenorphine 41 Metabolite of buprenorphine 42 No opioids were detected. The absence of expected drug(s) and/or drug metabolite(s) may indicate non-compliance, altered pharmacokinetics, inappropriate timing of specimen collection relative to drug administration, diluted/adulterated urine, or limitations of testing. ADDITIONAL INFORMATION This test was developed and its performance characteristics determined by [facility] in a manner consistent with CLIA requirements. This test has not been cleared or approved by the U.S. Food and Drug Administration. PDF Report available at: [email or web address] Test Performed by: [place] [address] Mechanic/Welder: Dwayne Hughes II, M.D., Ph.D. 43 [id number] 45 SEE RESULT BELOW Name: MARLENY MO : [address]: Janette SESAY C Acct: [id number] Unit: [id number] AGE: 25 Location: [facility] Re04/19/16 SEX: F Status: REG REF SPEC: [id number] DANIELLE: 04/19/169107 [facility] DR: Janette SESAY C REQ: [id number] RECD: 04/19/16 STATUS: COMP _ SOURCE: CER/VAG/RE SPDESC: ORDERED: Grp B Strp Scrn COMMENTS: [id number] QUERIES: Is Patient Penicillin Allergic? N Is patient penicillin allergic and/or sensitivities needed? N Provider Requisition # C77#[id number] Procedure Result Reported Site Group B Strep Culture Screen Final 04/21/16- 1054 ML Group B Strep Screen Negative * ML - MAIN LAB ([facility]) . END OF REPORT * ML=Testing performed at Main Lab DEPARTMENT OF PATHOLOGY, [address] [place] [address] Moises Salazar M.D. Director [facility] # [id number] 46 SEE RESULT BELOW Name: MARLENY MO : [address]: Janette Rosales Acct: [id number] Unit: [id number] AGE: 25 Location: [facility] Re04/19/16 SEX: F Status: REG REF SPEC: [id number] DANIELLE: 04/19/[address]: Janette Rosales REQ: [id number] RECD: 04/19/16 STATUS: SOUT _ ORDERED: IMAGE ANALYSIS, HPV/Thin Prep, HPV 16/18 GENE COMMENTS: [id number] FINAL DIAGNOSIS EPITHELIAL CELL ABNORMALITIES Atypical squamous cells of undetermined significance A. Ectocervical/Endocervical Specimen Adequacy: Satisfactory of evaluation Transformation zone component identified Patient Information: HPV: High risk HPV RNA testing regardless of pap results. HPV 16/18 Genotype Reflex Actual Specimen Date: 04/19/16 Last Menstrual Date: 07/28/15 ?: Y Date Time Test Result Flag (u) Normal Range 04/19/161351 HPV RNA RFLX GE POSITIVE H Negative The high-risk HPV types detected by the assay include: 16, 18, 31, 33, 35, 39, 45, 51, 52, 56, 58, 59, 66, and 68. Signed (signature on file) Moises Salazar MD 1615 This Pap test was evaluated with the assistance of the [employer] Test Imaging System. Due to cytologic findings at the life skills specialist microscope, comprehensive manual rescreening by a Magnetic Testing Technician may be required. The Pap Smear is [...] performed at Main Lab DEPARTMENT OF PATHOLOGY, [address] [place] [address] Moises Salazar M.D. Director [facility] # [id number] 47 The high-risk HPV types detected by the assay include: 16, 18, 31, 33, 35, 39, 45, 51, 52, 56, 58, 59, 66, and 68. 48 SEE RESULT BELOW Name: MARLENY MO Janna : [address]: Janette Rosales Acct: [id number] Unit: [id number] AGE: 25 Location: [facility] Re04/19/16 SEX: F Status: REG REF SPEC: [id number] DANIELLE: 04/19/[address] [facility] [address]: Janette Rosales REQ: [id number] RECD: 04/19/16 STATUS: COMP _ SOURCE: URINE SPDESC: ORDERED: Urine Culture COMMENTS: [id number] Procedure Result Reported Site Urine Culture Final 04/20/16- 7098 ML No growth of clinically significant organisms * ML - MAIN LAB ([facility]) . END OF REPORT * ML=Testing performed at Main Lab DEPARTMENT OF PATHOLOGY, [address] [place] [address] Moises Salazar M.D. Director [facility] # [id number] Procedures Date CPT Code Description Status 05/23/2017 13867 Remove Contraceptive Capsule Completed 11/01/2016 19002 Colposcopy W/Loop Electrode Biopsy Of The Cervix Completed 08/15/2016 43846 Colposcopy W/Biopsy Cervix/Endocervical Curettage Completed 07/18/2016 56789 Insertion, Non-Biodegradable Drug Delivery Implant Completed 05/17/2016 91721 Vaginal Delivery Only Completed 05/12/2016 37914 Antepartum Care 4-6 Visits Completed Plan of Care Future Appointment(s):09/07/2017 11:00 am - Sandee Zavala CNM at [facility]
[2017-07-30 17:28] VITALS: BP 116/78
[2017-07-30] MEDS ORDERED: Oseltamivir CAP* 75 MG CAP PO ONE (17:40)
--- NOTE | 2017-07-30 17:45 | UC ---
Lennox Amaya Julia, scribed for Richie Oakley MD on 07/30/17 at 1740 . General HPI - HPI Summary HPI Summary: This patient is a 27 year old F presenting to [facility] with a chief complaint of cough and headache since yesterday. Patient reports fever (99 roughly), and nasal congestion. Patient denies rhinorrhea, nausea, and vomiting. The patient rates the pain 6/10 in severity. Patient has 1 sick contact at home. - History of Current Complaint Chief Complaint: UCGeneralIllness Stated Complaint: HEADACHE,COUGH Time Seen by Provider: 07/30/17 17:29 Hx Obtained From: Patient Hx Last Menstrual Period: 05/29/18 Onset/Duration: Lasting Days Timing: Constant Pain Intensity: 6 Pain Location at: headache Associated Signs & Symptoms: Positive: Cough - Allergy/Home Medications Allergies/Adverse Reactions: Allergies Allergy/AdvReac Type Severity Reaction Status Date / Time No Known Allergies Allergy Verified 07/30/17 17:22 PMH/Surg Hx/FS Hx/Imm Hx - Additional Past Medical History Additional PMH: Patient denies possibility of . Previously Healthy: Yes - Surgical History Surgical History: None - Family History Known Family History: Negative: Cardiac Disease - Social History Occupation: Employed Full-time Alcohol Use: None Substance Use Type: None Substance Use Comment - Amount & Last Used: 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 Smoking Status (MU): Current Every Day Smoker Type: Cigarettes Amount Used/How Often: 10 cig/ day Have You Smoked in the Last Year: Yes Household Exposure Type: Cigarettes - Immunization History Most Recent Influenza Vaccination: unknown Most Recent Tetanus Shot: 2016 Most Recent Pneumonia Vaccination: none Review of Systems Constitutional: Fever ENT: Sinus Congestion Respiratory: Cough All Other Systems Reviewed And Are Negative: Yes Physical Exam Triage Information Reviewed: Yes Vital Signs: Initial Vital Signs Temp 99.2 F 07/30/17 17:23 Pulse 90 07/30/17 17:23 Resp 18 07/30/17 17:23 BP 116/78 07/30/17 17:23 Pulse Ox 99 07/30/17 17:23 Vital Signs Reviewed: Yes - Additional Comments Appearance: mild ill appearing, Well-nourished Skin: Warm Respiratory: Clear to auscultation Cardiovascular: Normal S1, S2. No murmurs. Normal distal pulses in tibial and radial bilaterally. Psychiatric: Normal General: No acute distress Course/Dx - Course Course Of Treatment: in no acute distress, h+p consistent with flu like sxs, tolerating po, vitals wnl, agrees to and undertsands dc instructions. - Differential Dx - Multi-Symptom Provider Diagnoses: influenza Discharge - Discharge Plan Condition: Stable Disposition: HOME Prescriptions: Oseltamivir CAP* [Tamiflu CAP*] 75 mg PO BID #10 cap Patient Education Materials: Influenza (ED) Forms: *Work Release Referrals: Lana Godinez MD [Primary Care Provider] - Additional Instructions: PLEASE TAKE MEDICATIONS DIRECTED PLEASE KEEP YOURSELF WELL HYDRATED WITH SMALL AMOUNTS OF FLUID MORE FREQUENTLY THROUGHOUT THE DAY PLEASE SEEK MEDICAL ATTENTION IMMEDIATELY IF YOU HAVE ANY WORSENING OR CONCERNING SYMPTOMS PLEASE MAKE AN APPOINTMENT TO BE SEEN BY YOUR PRIMARY CARE DOCTOR WITHIN 1 WEEK The documentation as recorded by the Lennox belle Julia accurately reflects the service I personally performed and the decisions made by , Richie Oakley MD.
== END 2017-07-30 17:58 | disposition home or self-care (01) ==
LOC: UCEAST 15:42
DX: J11.1 Influenza due to unidentified influenza virus with other respiratory manifestations (principal); F17.210 Nicotine dependence, cigarettes, uncomplicated
CPT/HCPCS: 99212; A9270-GY; G0463

== ENCOUNTER 2017-11-20 11:34 | Emergency (ER) | payer OTHER ==
[2017-11-20 13:37] LABS: ABS Basophils 0 10^3/ul (0-0.2); ABS Eosinophils 0.1 10^3/ul (0-0.6); ABS Monocytes 0.6 10^3/ul (0-0.8); ABS Nucleated RBC 0 10^3/ul; Eosinophil % 0.5 % (0-6); Hematocrit 40 % (35-47); Lymphocyte % 9.5 % (25-47); Mean Corpuscular HGB Conc 33 g/dl (31-36); Mean Corpuscular Hemoglobin 27 pg (27-31); Mean Corpuscular Volume 83 fL (80-97); Mean Platelet Volume 9.4 um3 (7.4-10.4); Nucleated Red Blood Cells % 0; Platelet Count 202 10^3/ul (150-450); Red Blood Count 4.76 10^6/ul (4.0-5.4); Red Cell Distribution Width 15 % (10.5-15); White Blood Count 10.7 10^3/ul (3.5-10.8)
[2017-11-20 14:02] LABS: EGFR Non-African American 119.9 (>60)
[2017-11-20 14:14] VITALS: BP 131/80
--- NOTE | 2017-11-20 14:18 | ED ---
Abdominal Pain/Female - HPI Summary HPI Summary: Patient is a 27-year-old female who presents emergency department for upper abdominal pain that started this morning with heavy lifting. Patient states she works at [employer] and was carrying a heavy laundry basket up steps when she developed upper abdominal pain. Pain is intermittent and worse with movement. Pt. also notes she is 13 weeks . She has an apt. with OB tomorrow. She denies pelvic pain, vaginal bleeding or discharge. She otherwise denies recent URI sxs, N/V/D, or urinary symptoms. Symptoms are mild in severity. - History of Current Complaint Chief Complaint: EDAbdPain Stated Complaint: ABD & BACK PAIN/13 WKS PREG Time Seen by Provider: 11/20/17 13:51 Hx Obtained From: Patient Hx Last Menstrual Period: 05/29/18 Pain Intensity: 6 Allergies/Adverse Reactions: Allergies Allergy/AdvReac Type Severity Reaction Status Date / Time No Known Allergies Allergy Verified 07/30/17 17:22 Home Medications: Home Medications Vitamin TAB* 1 tab PO DAILY 11/20/17 [History Confirmed 11/20/17] PMH/Surg Hx/FS Hx/Imm Hx Previously Healthy: Yes Psychiatric History: Reports: Hx Anxiety, Hx Depression Infectious Disease History: No Infectious Disease History: Denies: Traveled Outside the [place] in Last 30 Days - Family History Known Family History: Positive: None Negative: Cardiac Disease - Social History Occupation: Employed Full-time Lives: With Family Alcohol Use: None Substance Use Type: Reports: None Substance Use Comment - Amount & Last Used: 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 Hx Tobacco Use: Yes Smoking Status (MU): Current Every Day Smoker Type: Cigarettes Amount Used/How Often: 10 cig/ day Have You Smoked in the Last Year: Yes Review of Systems Constitutional: Negative Eyes: Negative ENT: Negative Cardiovascular: Negative Respiratory: Negative Positive: Abdominal Pain. Negative: Vomiting, Diarrhea, Nausea All Other Systems Reviewed And Are Negative: Yes Physical Exam Triage Information Reviewed: Yes Vital Signs On Initial Exam: Initial Vitals Temp Pulse Resp BP Pulse Ox 97.9 F 83 16 128/74 98 11/20/17 11:41 11/20/17 11:41 11/20/17 11:41 11/20/17 11:41 11/20/17 11:41 Vital Signs Reviewed: Yes Appearance: Positive: Well-Appearing Skin: Positive: Warm, Dry Head/Face: Positive: Normal Head/Face Inspection Eyes: Positive: Normal Neck: Positive: Supple Respiratory/Lung Sounds: Positive: Clear to Auscultation Cardiovascular: Positive: Normal, RRR Abdomen Description: Positive: Nontender, Soft, Other: - No palpable mass or bulges. Neurological: Positive: Normal, CN Intact II-III Psychiatric: Positive: Normal Diagnostics - Vital Signs Vital Signs Temp Pulse Resp BP Pulse Ox 11/20/17 13:16 97.2 F 72 16 107/54 98 11/20/17 11:41 97.9 F 83 16 128/74 98 - Laboratory Lab Results: Lab Results 11/20/17 11/20/17 Range/Units 12:43 12:43 WBC 10.7 (3.5-10.8) 10^3/ul RBC 4.76 (4.0-5.4) 10^6/ul Hgb 13.0 (12.0-16.0) g/dl Hct 40 (35-47) % MCV 83 (80-97) fL MCH 27 (27-31) pg MCHC 33 (31-36) g/dl RDW 15 (10.5-15) % Plt Count 202 (150-450) 10^3/ul MPV 9.4 (7.4-10.4) um3 Neut % (Auto) 84.0 H (38-83) % Lymph % (Auto) 9.5 L (25-47) % [place]aver % (Auto) 5.8 (0-7) % Eos % (Auto) 0.5 (0-6) % Baso % (Auto) 0.2 (0-2) % Absolute Neuts (auto) 9.0 H (1.5-7.7) 10^3/ul Absolute Lymphs (auto) 1.0 (1.0-4.8) 10^3/ul Absolute Monos (auto) 0.6 (0-0.8) 10^3/ul Absolute Eos (auto) 0.1 (0-0.6) 10^3/ul Absolute Basos (auto) 0 (0-0.2) 10^3/ul Absolute Nucleated RBC 0 10^3/ul Nucleated RBC % 0 Sodium 137 L (139-145) mmol/L Potassium 3.7 (3.5-5.0) mmol/L Chloride 106 (101-111) mmol/L Carbon Dioxide 25 (22-32) mmol/L Anion Gap 6 (2-11) mmol/L BUN 8 (6-24) mg/dL Creatinine 0.60 (0.51-0.95) mg/dL Est GFR ( Amer) 154.2 (>60) Est GFR (Non-Af Amer) 119.9 (>60) BUN/Creatinine Ratio 13.3 (8-20) Glucose 86 (70-100) mg/dL Calcium 9.0 (8.6-10.3) mg/dL Total Bilirubin 0.50 (0.2-1.0) mg/dL AST 46 H (13-39) U/L ALT 32 (7-52) U/L Alkaline Phosphatase 64 (34-104) U/L Total Protein 6.5 (6.4-8.9) g/dL Albumin 3.7 (3.2-5.2) g/dL Globulin 2.8 (2-4) g/dL Albumin/Globulin Ratio 1.3 (1-3) Beta HCG, Quant Pending Result Diagrams: 11/20/17 12:43 11/20/17 12:43 Lab Statement: Any lab studies that have been ordered have been reviewed, and results considered in the medical decision making process. Abdominal Pain Fem Course/Dx - Course Course Of Treatment: Patient presenting for evaluation of upper abdominal pain after heavy lifting. She has a benign abdominal exam. She has no evidence of hernia on exam. Blood work was ordered in triage which is unremarkable. Patient's pain is improving since incident. Suspect strain abdominal wall muscle. Advised patient she can take Tylenol for pain as directed. To apply cool compresses intermittently. Follow-up with OB tomorrow as scheduled. Will return to the ER if symptoms change or worsen. Patient understands and agrees with plan. - Diagnoses Provider Diagnoses: Abdominal muscle strain Discharge - Sign-Out/Discharge Documenting (check all that apply): Discharge/Admit/Transfer - Discharge Plan Condition: Good Disposition: HOME Patient Education Materials: Muscle Strain (ED) Referrals: Lana Godinez MD [Primary Care Provider] - Additional Instructions: Follow up with your OB tomorrow as scheduled Apply cool compress to affected area Can take tylenol for pain as directed Return to ER if symptoms change or worsen - Billing Disposition and Condition Condition: GOOD Disposition: HOME
== END 2017-11-20 14:13 | disposition home or self-care (01) ==
LOC: ED 11:34
DX: O26.891 Other specified pregnancy related conditions, first trimester (principal); S39.011A Strain of muscle, fascia and tendon of abdomen, initial encounter; X50.0XXA Overexertion from strenuous movement or load, initial encounter; Y92.9 Unspecified place or not applicable; O99.331 Smoking (tobacco) complicating pregnancy, first trimester; F17.210 Nicotine dependence, cigarettes, uncomplicated; Z3A.13 13 weeks gestation of pregnancy
CPT/HCPCS: 36415; 80053; 84702; 85025; 99282

== ENCOUNTER → 2018-01-02 10:11 | Emergency (ER) | payer OTHER ==
[~2018-01-02 10:11] MED LIST: Morphine VIAL* 4 MG/ML VIAL (1 ml vial) IV ONE; Ondansetron ODT TAB* 4 MG PO ONE; cefTRIAXone(*) 1 GM in NS 0.9% 50 ML* 50 ML IVPB ONE; diPHENhydraMINE IV* 50 MG/ML 1 ml VIAL (BENADRYL) IV ONE
--- NOTE | 2018-01-02 10:43 | ED ---
- HPI Summary HPI Summary: This pt is a 27 y/o female, currently 19 weeks (due date is May 25), presenting to [facility] via EMS for right sided back pain since last night. Pt notes her right sided back pain radiates to the front. Pt notes she did not sleep well last night secondary to pain. Denies trauma or injury to her back. Currently she rates her pain 8 out of 10 in severity. Her pain is aggravated with movement. She states she had nausea last night and 1 episode of emesis. Denies hematuria, dysuria, swelling in LE. She has not taken any pain medications. She is able to feel movements. Pt denies hx of kidney stones. She reports hx of UTI with last . She is a tobacco user. Denies drug use or addiction problems. - History of Current Complaint Stated Complaint: ABD PAIN Time Seen by Provider: 01/02/18 10:28 Hx Obtained From: Patient Chief Complaint: Pain - right sided back pain Onset/Duration: Started Hours Ago, Still Present Timing: Lasting Hours Current Severity: Severe Pain Intensity: 8 Location of Pain: Right Side - of back Aggravating Factors: Movement Alleviating Factors: Nothing Associated Signs and Symptoms: Positive: Back Pain - right sided, Nausea, Vomiting. Negative: Fever, Urinary Symptoms - Assessment Hx Now: Yes Hx : 2 Hx Para: 1 SAB: 0 IEA: 0 - Additional Pertinent History Maternal Blood Type and Rh: A Positive - Allergies/Home Medications Allergies/Adverse Reactions: Allergies Allergy/AdvReac Type Severity Reaction Status Date / Time No Known Allergies Allergy Verified 07/30/17 17:22 PMH/Surg Hx/FS Hx/Imm Hx Endocrine/Hematology History: Denies: Hx Diabetes History: Denies: Hx Kidney Stones Psychiatric History: Reports: Hx Anxiety, Hx Depression Infectious Disease History: No Infectious Disease History: Denies: Traveled Outside the [place] in Last 30 Days - Family History Known Family History: Negative: Cardiac Disease - Social History Alcohol Use: None Substance Use Type: Reports: None Substance Use Comment - Amount & Last Used: 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 Hx Tobacco Use: Yes Smoking Status (MU): Current Every Day Smoker Type: Cigarettes Amount Used/How Often: 10 cig/ day Have You Smoked in the Last Year: Yes Review of Systems Negative: Fever, Chills Positive: Vomiting, Nausea Negative: hematuria Musculoskeletal: Other - right sided back pain Negative: Edema Neurological: Negative All Other Systems Reviewed And Are Negative: Yes Physical Exam - Summary Physical Exam Summary: Appearance: Well appearing, no pain distress Skin: warm, dry, reflects adequate perfusion Head/face: normal Eyes: EOMI, BETHANY ENT: normal Neck: supple, non-tender Respiratory: occasional wheeze otherwise clear Cardiovascular: RRR, pulses symmetrical Abdomen: Fundus just below the umbilicus, no abdominal tenderness Bowel: present Musculoskeletal: Tenderness to palpation on right lower lumbar area, no CVA tenderness Neuro: normal, sensory motor intact, A&Ox3 - Physical Exam Triage Information Reviewed: Yes Vital Signs On Initial Exam: Initial Vitals Temp Pulse Resp BP Pulse Ox 98.9 F 81 18 113/73 95 01/02/18 10:29 01/02/18 10:29 01/02/18 10:29 01/02/18 10:29 01/02/18 10:29 Vital Signs Reviewed: Yes Diagnostics - Vital Signs Vital Signs Temp Pulse Resp BP Pulse Ox 01/02/18 10:29 98.9 F 81 18 113/73 95 - Laboratory Result Diagrams: 01/02/18 12:11 01/02/18 12:11 Lab Statement: Any lab studies that have been ordered have been reviewed, and results considered in the medical decision making process. - Additional Comments Diagnostic Additional Comments: Renal US, as read by radiologist IMPRESSION: 1. Right hydronephrosis. No appreciable nephrolithiasis. No right ureteral jet is identified. 2. Nephrolithiasis. Read by ED physician: Pt has big stone in gallbladder with some hydro. US, as read by radiologist IMPRESSION: Single intrauterine gestation with gestational age of 20 weeks 2 days determined by today's initial ultrasound. Estimated date of delivery is May 20, 2018. Amniotic fluid is within normal limits. heart activity is noted at 158 bpm. Read by ED physician: normal ultrasound MRI Abdomen, as read by radiologist IMPRESSION: There is right hydronephrosis and hydroureter. On the coronal images there is a 4 mm area of signal void at the right ureterovesicular junction which may represent right UVJ calculi. Perinephric fluid is noted surrounding the right kidney. Dr. Rocha has reviewed these radiology reports. Course/Dx - Course Course Of Treatment: 19 week female with symptoms concerning for right- sided renal colic. Ultrasound shows hydronephrosis at a level more significant than consistent with at this gestation. ultrasound is normal. There is no blood in the urine but I was still concerned for obstructing stone site obtained an MRI. The MRI is consistent with a 4 mm distal obstructing stone. Urology is not currently available at our facility. The urologist here suggest patient feed transferred. I discussed the case with the [facility] who will be accepting the case at [facility]. Urology consultation will be obtained there. The patient had been given a dose of antibiotic but had not shown any true urinary tract infection. - Differential Diagnosis/HQI/PQRI: Other: - Renal colic, UTI, low back pain, [place] contractions - Diagnoses Provider Diagnoses: Renal colic, Ureterolithiasis, Second trimester - Provider Notifications Discussed Care Of Patient With: [place] Nichole Time Discussed With Above Provider: 12:04 Instructed by Provider To: Other - I discussed with Dr. Nichole, radiologist, who approves MR. [16:34] I spoke with Dr. Bone, urologist, who will not consult on the pt as he is not executive talent acquisition consultant. [16:52] I discussed with the [facility] transfer center and Dr. Griffin accepted the pt for transfer. Reason For Transfer: Specialty available at [facility] but not executive talent acquisition consultant. Discharge - Sign-Out/Discharge Documenting (check all that apply): Patient Departure - Transfer to [facility] - Discharge Plan Condition: Fair Disposition: TRANS HIGHER LVL OF CARE FAC Referrals: Lana Godinez MD [Primary Care Provider] - - Billing Disposition and Condition Condition: FAIR Disposition: Trans Higher Lvl of Care Fac
[2018-01-02 11:41] LABS: Urine Appearance Cloudy; Urine Blood Negative (Negative); Urine Color Yellow; Urine Ketones Negative (Negative); Urine Protein Negative (Negative); Urine Red Blood Cell Absent (Absent); Urine Specific Gravity 1.018 (1.010-1.030); Urine Urobilinogen Negative (Negative); Urine White Blood Cell 2+(11-20/hpf) (Absent)
--- NOTE | 2018-01-02 11:58 | RAD ---
HISTORY: R back pain/flank pain COMPARISONS: April 03, 2014 TECHNIQUE: Multiple transverse and longitudinal ultrasound images were obtained of the right kidney and bladder using grayscale and color Doppler imaging. FINDINGS: RIGHT KIDNEY: The right kidney is normal in shape, size, contour, and echogenicity. There is moderate pelvocaliectasis. There is no appreciable nephro lithiasis. The right kidney measures 12.4 x 5.5 x 5.3 cm. LEFT KIDNEY: No images are submitted of the left kidney. BLADDER: The bladder is incompletely distended. A left ureteral jet is noted. No right ureteral jet is identified. AORTA AND IVC: No images are submitted of the vasculature. RETROPERITONEUM: Unremarkable. OTHER: A gallstone is noted. IMPRESSION: 1. RIGHT HYDRONEPHROSIS. NO APPRECIABLE NEPHROLITHIASIS. NO RIGHT URETERAL JET IS IDENTIFIED. 2. NEPHROLITHIASIS.
--- NOTE | 2018-01-02 11:58 | RAD ---
Indication: Right flank pain, back pain. Real-time sonography of the was performed. There is a single intrauterine gestation in variable presentation. There is anterior placenta without evidence of placenta previa.. heart activity is noted at 1 50 bpm. movement is noted. Amniotic fluid is within normal limits. The cervix is long and closed. The BPD measures 4.8 cm corresponding to gestational age of 20 weeks 4 days. Head circumference measures 17.9 cm corresponding to gestational age of 20 weeks 3 days. Abdominal circumference measures 14.7 cm corresponding to gestational age of 20 weeks 0 days. Femur length measures 3.1 cm corresponding to gestational age of 19 weeks 5 days. The estimated age determined by today's initial ultrasound is 20 weeks 2 days. Estimated date of delivery is May 20, 2018.. Estimated weight is 320 mg. Four-chamber heart is identified. IMPRESSION: Single intrauterine gestation with gestational age of 20 weeks 2 days determined by today's initial ultrasound. Estimated date of delivery is May 20, 2018. Amniotic fluid is within normal limits. heart activity is noted at 1 58 bpm.
[2018-01-02 12:27] LABS: ABS Basophils 0 10^3/ul (0-0.2); ABS Eosinophils 0 10^3/ul (0-0.6); ABS Lymphocytes 0.9 10^3/ul (1.0-4.8); ABS Monocytes 0.7 10^3/ul (0-0.8); ABS Neutrophils 11.2 10^3/ul (1.5-7.7); ABS Nucleated RBC 0 10^3/ul; Eosinophil % 0.3 % (0-6); Hematocrit 37 % (35-47); Hemoglobin 12.6 g/dl (12.0-16.0); Lymphocyte % 7.2 % (25-47); Mean Corpuscular HGB Conc 34 g/dl (31-36); Mean Corpuscular Hemoglobin 28 pg (27-31); Mean Corpuscular Volume 82 fL (80-97); Mean Platelet Volume 8.8 um3 (7.4-10.4); Nucleated Red Blood Cells % 0.1; Platelet Count 213 10^3/ul (150-450); Red Blood Count 4.59 10^6/ul (4.00-5.40); Red Cell Distribution Width 15 % (10.5-15); White Blood Count 12.8 10^3/ul (3.5-10.8)
[2018-01-02 12:45] LABS: EGFR Non-African American 75.1 (>60)
--- NOTE | 2018-01-02 15:50 | RAD ---
Indication: Right hydronephrosis and . Image sequences: Coronal T2 and T1 as well as axial T1 and T2-weighted images of the abdomen and pelvis was obtained. There is right hydronephrosis and right hydroureter up to the level of the ureterovesicular junction. There is enlargement of the right kidney. A small amount of perinephric fluid is noted. At the right ureterovesicular junction there is periureteral thickening noted. There is suggestion of a small area of signal void in the distal ureter measuring approximately 4 mm which may represent a distal ureteral calculus. The left ureter is not dilated. There is cholelithiasis noted. The spleen and liver are otherwise unremarkable. No retroperitoneal adenopathy is noted. There is a gravid uterus noted with the fetus in place. IMPRESSION: There is right hydronephrosis and hydroureter. On the coronal images there is a 4 mm area of signal void at the right ureterovesicular junction which may represent right UVJ calculi. Perinephric fluid is noted surrounding the right kidney.
[2018-01-02 18:32] VITALS: BP 133/82
== END | disposition short-term general hospital (02) ==
LOC: ED 10:11
DX: N23 Unspecified renal colic (principal); N20.1 Calculus of ureter; Z34.92 Encounter for supervision of normal pregnancy, unspecified, second trimester; M54.9 Dorsalgia, unspecified; R11.2 Nausea with vomiting, unspecified; F17.210 Nicotine dependence, cigarettes, uncomplicated
CPT/HCPCS: 36415; 74181; 76775; 76815; 80048; 81003; 81015; 85025; 87086; 96374; 96375; 99284; A9270-GY; J0696; J1200; J2270

== ENCOUNTER 2018-05-23 09:11 | Inpatient (IN) | payer OTHER ==
--- NOTE | 2018-05-23 09:56 | HP ---
General Information - Reason for Visit 39 5/7 weeks elective induction - General Information Maternal Age: 27 Grav: 3 Para: 1 SAB: 1 IEA: 0 Estimated Due Date: 05/25/18 Determined By: LMP Maternal Blood Type and Rh: A Positive - Results this Serology/RPR Result: Non-Reactive Rubella Result: Non-Immune HBsAg Result: Negative HIV Result: Negative GBS Culture Result: Negative Past Medical History Delivery History: See Records Pertinent Past Surgical History: See Records Pertinent Family History: See Records - Antepartal Records Antepartal Records: Reviewed, Complicated by: - tobacco use H/o drug abuse Review of Systems Constitutional: Comfortable CV Complaint: No Respiratory: Shortness of Breath: No Gastrointestinal: No Nausea/Vomiting Genitourinary: No Dysuria, No Bleeding, No Leaking Fluid Musculoskeletal: No Complaint Neurological: No Headache Movement: Normal Exam Allergies/Adverse Reactions: Allergies No Known Allergies Allergy (Verified 07/30/17 17:22) T 98.4 wgt 199# P :88 T 98.4 P 88 BP 127/82 RR 18 - Measurements Height: 5 ft 5 in Weight: 199 lb Body Mass Index (BMI): 33.1 Pre- Weight: 140 lb - Exam Breast: Breast Exam Deferred CVA: No CVA Tenderness Extremities: No Edema Heart: Normal Rhythm/Heart Sounds HEENT: No Significant Findings Lungs: Clear Bilaterally Rectal: Rectal Exam Deferred Reflexes: DTR 2+ Thyroid: No Thyromegaly - Abdominal Exam Abdomen Exam: Non-Tender - Ultrasound/Biophysical Profile Ultrasound Status: Not Done Targeted Exam Findings See L&D Outpatient Visit Provider Note for Findings: Yes Cervical Exam: 2cm Effacement: 80% Station: 0 Presenting Part: Vertex Membrane Status: Intact EFM Findings - External Monitor Findings Baseline Heart Rate: 120 External Monitor Findings: Accelerations Present, No Pattern of Variable or Late Decelerations, Variability Moderate Contractions: None Assessment/Plan - Obstetrical Risk Factors Obstetrical Risk Factors: Tobacco Use - Plan Plan: Induction, Admit - Anticipate Vaginal Delivery
[2018-05-23] MEDS ORDERED: Oxytocin in LR* 20 UNITS/1,000 ML BAG IVPB SCH ×2 (10:00→18:00)
[2018-05-23] MEDS ORDERED: Oxytocin in LR* 20 UNITS/1,000 ML BAG IVPB ONE (10:18)
[2018-05-23 10:26] LABS: ABS Basophils 0.1 10^3/ul (0-0.2); ABS Eosinophils 0 10^3/ul (0-0.6); ABS Lymphocytes 1.7 10^3/ul (1.0-4.8); ABS Monocytes 0.7 10^3/ul (0-0.8); ABS Neutrophils 12.2 10^3/ul (1.5-7.7); ABS Nucleated RBC 0 10^3/ul; Eosinophil % 0.3 %; Hematocrit 39 % (35-47); Hemoglobin 12.8 g/dl (12.0-16.0); Lymphocyte % 11.5 %; Mean Corpuscular HGB Conc 33 g/dl (31-36); Mean Corpuscular Hemoglobin 27 pg (27-31); Mean Corpuscular Volume 82 fL (80-97); Mean Platelet Volume 9.4 fL (7.4-10.4); Nucleated Red Blood Cells % 0; Platelet Count 170 10^3/ul (150-450); Red Blood Count 4.71 10^6/ul (4.00-5.40); Red Cell Distribution Width 15 % (10.5-15); White Blood Count 14.7 10^3/ul (3.5-10.8)
[2018-05-23] MEDS ORDERED: OBEPIDURAL* 250 ML EPIDURAL ONE (15:23)
[2018-05-23] MEDS ORDERED: fentaNYL* 50 MCG/ML 2 ML VIAL (100 MCG VIAL) ONE (15:25)
[2018-05-23] MEDS ORDERED: Phenylephrine IV* 40 MCG/ML 10 ML SYRINGE IV PUSH PRN ×2 (16:21)
[2018-05-23] MEDS ORDERED: Famotidine TAB* 20 MG PO PRN (16:21)
[2018-05-23] MEDS ORDERED: Sodium Citrate/Citric Acid* 15 ML UDC PO PRN (16:21)
[2018-05-23] MEDS ORDERED: OBEPIDURAL* 250 ML EPIDURAL SCH (17:00)
[2018-05-23] MEDS ORDERED: Acetaminophen TAB* 325 MG PO PRN (17:27)
[2018-05-23] MEDS ORDERED: Dibucaine 1% 28.35 GM TUBE PR PRN (17:27)
[2018-05-23] MEDS ORDERED: Glycerin ADULT SUPP PR PRN (17:27)
[2018-05-23] MEDS ORDERED: Witch Hazel PAD* JAR TOPICAL PRN (17:27)
[2018-05-23] MEDS ORDERED: Simethicone TAB* 80 MG TAB.CHEW PO SCH (17:30)
--- NOTE | 2018-05-23 17:34 | PROCNOTE ---
[facility] OB: Delivery Note - Delivery A Date of : 05/23/18 Time of : 17:13 [place] Sex: Male Weight at : 6 lb 14 oz Score 1 Minute: 9 Score 5 Minutes: 9 Gestational Age in Weeks and Days at Delivery: 39 Weeks and 5 Days Delivery Method: Spontaneous Vaginal Labor: Induced Did Patient attempt ?: N/A, No Previous Amniotic Fluid: Clear Estimated Blood Loss: 300 Anesthesia/Analgesia: CEI for Labor Delivered By: Stephanie Desir - Nursery Level of Nursery: Regular/Bedside - Perineum Perineal Injury: Perineal Laceration - first degree repair with X 1 interuppted 3.o vicryl Perineal Repair: By Delivering Practioner - Events Delivery Events of Note: Pitocin During Labor Delivery Events of Note Comment: nuchal arm with cord around arm
[2018-05-24 07:10] LABS: ABS Basophils 0.1 10^3/ul (0-0.2); ABS Eosinophils 0.1 10^3/ul (0-0.6); ABS Monocytes 0.9 10^3/ul (0-0.8); ABS Neutrophils 11.2 10^3/ul (1.5-7.7); ABS Nucleated RBC 0 10^3/ul; Hematocrit 37 % (35-47); Hemoglobin 12.2 g/dl (12.0-16.0); Lymphocyte % 14.2 %; Mean Corpuscular HGB Conc 33 g/dl (31-36); Mean Corpuscular Hemoglobin 27 pg (27-31); Mean Corpuscular Volume 83 fL (80-97); Mean Platelet Volume 9.5 fL (7.4-10.4); Nucleated Red Blood Cells % 0; Platelet Count 162 10^3/ul (150-450); Red Blood Count 4.51 10^6/ul (4.00-5.40); Red Cell Distribution Width 15 % (10.5-15); White Blood Count 14.4 10^3/ul (3.5-10.8)
[2018-05-24] MEDS: Ibuprofen TAB* 600 MG PO PRN (08:46)
[2018-05-24] MEDS: Docusate CAP* 100 MG PO SCH ×3 (08:47→20:19)
[2018-05-24] MEDS ORDERED: Ferrous Gluconate TAB* 324 MG TAB PO SCH (09:00)
[2018-05-25 08:09] VITALS: BP 119/76
[2018-05-25] MEDS: Ibuprofen TAB* 600 MG PO PRN (09:00)
[2018-05-25] MEDS: Docusate CAP* 100 MG PO SCH (09:01)
[2018-05-25] MEDS ORDERED: Tetan/Diph/Pertus SYR(Tdap)* 0.5 ML SYR(BOOSTRIX) use SYR IM ONE (10:40)
== END 2018-05-25 11:30 | disposition home or self-care (01) | DRG 560 ==
LOC: MCHOBOUT 09:11 → MCHOB 10:15
PROVIDERS: ADMIT Obstetrics & Gynecology; ATTEND Obstetrics & Gynecology
PROC: 3E033VJ Introduction of Other Hormone into Peripheral Vein, Percutaneous Approach (ICD-10-PCS; principal; 2018-05-23)
PROC: 10907ZC Drainage of Amniotic Fluid, Therapeutic from Products of Conception, Via Natural or Artificial Opening (ICD-10-PCS; 2018-05-23)
PROC: 10E0XZZ Delivery of Products of Conception, External Approach (ICD-10-PCS; 2018-05-23)
PROC: 4A1HXCZ Monitoring of Products of Conception, Cardiac Rate, External Approach (ICD-10-PCS; 2018-05-23)
PROC: 0HQ9XZZ Repair Perineum Skin, External Approach (ICD-10-PCS; 2018-05-23)
DX: O99.334 Smoking (tobacco) complicating childbirth (principal); Z37.0 Single live birth; Z3A.39 39 weeks gestation of pregnancy; O69.82X0 Labor and delivery complicated by other cord entanglement, without compression, not applicable or unspecified; O32.8XX0 Maternal care for other malpresentation of fetus, not applicable or unspecified; O70.0 First degree perineal laceration during delivery
CPT/HCPCS: 36415; 80307; 85025; 86850; 86900; 86901; 88307; A9270-GY; J3010